=== PATIENT | female | born 2000 | race Caucasian/White ===

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

== ENCOUNTER 2018-03-26 22:20 | Emergency (ER) | payer BC ==
--- NOTE | 2018-03-26 22:40 | EDM.PDOC ---
ED HPI GENERAL MEDICAL PROBLEM - General Chief Complaint: General Stated Complaint: Abd cramping Time Seen by Provider: 03/26/18 22:40 Source of Information: Reports: Patient, RN, RN Notes Reviewed History Limitations: Reports: No Limitations - History of Present Illness INITIAL COMMENTS - FREE TEXT/NARRATIVE: Patient presents to the ED at [facility] for the evaluation of periumbilical cramping that started about 1 1/2 hours ago. She states the cramping felt like period cramps. Patient is currently not having her period. She denies any fever or chills. She took Advil at the time of the cramping and it went away. Patient denies any N/V/D. No recent travel. No questionable foods. No close contacts with similar symptoms. No UTI symptoms. No risk for . Patient states she currently feels good. Onset: Today Onset Date: 03/26/18 Onset Time: 20:30 Generalized Pain Score (Numeric/FACES): 4 - Related Data Allergies Allergy/AdvReac Type Severity Reaction Status Date / Time No Known Allergies Allergy Verified 03/26/18 22:26 Home Meds: Home Meds . [No Known Home Meds] 10/28/17 [History] Past Medical History - Past Health History Medical/Surgical History: Denies Medical/Surgical History Social & Family History - Tobacco Use Smoking Status *Q: Never Smoker ED ROS GENERAL - Review of Systems Review Of Systems: See Below Constitutional: Denies: Fever, Chills Respiratory: Denies: Shortness of Breath, Cough Cardiovascular: Denies: Chest Pain, Palpitations GI/Abdominal: Reports: Abdominal Pain (cramping). Denies: Constipation, Diarrhea, Nausea, Vomiting Skin: Reports: No Symptoms Neurological: Reports: No Symptoms ED EXAM, GENERAL - Physical Exam Exam: See Below Exam Limited By: No Limitations General Appearance: Alert, No Apparent Distress Respiratory/Chest: No Respiratory Distress, Lungs Clear, Normal Breath Sounds Cardiovascular: Normal Peripheral Pulses, Regular Rate, Rhythm Peripheral Pulses: 2+: Radial (L), Radial (R) GI/Abdominal: Normal Bowel Sounds, Soft, Non-Tender, No Organomegaly, No Distention, No Mass Neurological: Alert, Oriented Skin Exam: Warm, Dry, Intact, Normal Color Course - Vital Signs Last Recorded V/S: Last Vital Signs Temp 36.8 C 03/26/18 22:27 Pulse 74 03/26/18 22:27 Resp 18 03/26/18 22:27 BP 129/66 03/26/18 22:27 Pulse Ox 98 03/26/18 22:27 Departure - Departure Time of Disposition: 22:50 Disposition: Home, Self-Care 01 Condition: Good Clinical Impression: Abdominal cramping - Discharge Information *PRESCRIPTION DRUG MONITORING PROGRAM REVIEWED*: Not Applicable *COPY OF PRESCRIPTION DRUG MONITORING REPORT IN PATIENT EAMON: Not Applicable Instructions: Abdominal Pain, Adult Referrals: PCP,None [Primary Care Provider] - Forms: ED Department Discharge Additional Instructions: 1. Stay well hydrated and rest 2. Eat a bland diet for the next couple days 3. Avoid caffeine 4. See your Primary as symptoms warrant - Problem List Review Problem List Initiated/Reviewed/Updated: Yes - Assessment/Plan Assessment:: Benign Abdominal cramping Plan: Assessment findings discussed with patient. No acute emergency found. No medical necessity for further work up as patient is currently symptoms free and assessment findings do not warrant a work up.
== END 2018-03-26 22:55 | disposition home or self-care (01) ==
LOC: VM.ED 22:20
DX: R10.33 Periumbilical pain (principal)
CPT/HCPCS: 99283